=== PATIENT | male | born 1985 | race Caucasian/White ===

== ENCOUNTER 2024-07-04 12:31 | Emergency (ER) | payer MEDICARE, OTHER | END 2024-07-04 15:49 | disposition home or self-care (01) | LOC: MW.ED 12:31 | DX: B37.2 Candidiasis of skin and nail (principal); I10 Essential (primary) hypertension; Z88.8 Allergy status to other drugs, medicaments and biological substances; Z91.018 Allergy to other foods; Z79.01 Long term (current) use of anticoagulants; Z79.899 Other long term (current) drug therapy | CPT/HCPCS: 99282 ==